=== PATIENT | female | born 1990 | race Two or more races ===

== ENCOUNTER 2018-12-21 02:50 | Inpatient (IN) | payer OTHER ==
[~2018-12-21] VITALS: Ht 157.5 cm; Wt 93.0 kg
[2018-12-21 04:40] VITALS: BP 134/83
--- NOTE | 2018-12-21 04:40 | NUR ---
RN MS ADMITTING OPENING NOTES RECEIVED PATIENT FROM [facility] VIA GURNEY TRANSPORTED BY 2 EMT, PATIENT WAS ABLE TO AMBULATE WITH STEADY GATE TO THE BED AND BATHROOM, RESPIRATIONS EVEN AND UNLABORED WITH EQUAL RISE AND FALL OF CHEST, STATES PAIN 3/10 PAIN IS TOLERABLE DOES NOT WANT PAIN MEDICATION AT THIS TIME, IV SITE TO RIGHT AC #20G INTACT AND PATENT, NO REDNESS, NO INFILTRATION PRESENT, MRSA SWAB DONE, STATES " I DONT HAVE ANY OPEN WOUNDS". BELONGINGS LIST DONE, MED RECON IN PLACE , ORIENTED TO STAFF AND CALL LIGHT AND KEPT WITHIN REACH, SAFETY PRECAUTIONS IN PLACE, LOW BED AND LOCKED, MADE AWARE OF ADMISSION AWAITING ORDERS WILL FOLLOW ORDERED. ALL NEEDS ATTENDED AT THIS TIME, REMAINS NPO. WILL CONTINUE TO MONITOR.
[2018-12-21] MEDS ORDERED: IV D5/0.45 NACL 1,000 ML IV PRN (05:09)
[2018-12-21] MEDS ORDERED: LEVO1TAB72 PO (05:26)
[2018-12-21] MEDS ORDERED: HYDROCODONE/APAP 5/325MG 1 EACH TABLET PO PRN (05:30)
[2018-12-21] MEDS ORDERED: ACETAMINOPHEN 325 MG TABLET PO PRN (05:30)
[2018-12-21] MEDS ORDERED: ONDANSETRON HCL/PF 4 MG/2 ML VIAL IVP PRN (05:30)
[2018-12-21] MEDS ORDERED: MAG HYDROX/AL HYDROX/SIMETH 30 ML UDC PO PRN (05:30)
[2018-12-21] MEDS ORDERED: MAGNESIUM HYDROXIDE 30 ML UDC PO PRN (05:30)
[2018-12-21] MEDS ORDERED: Z GUARD REMEDY 2 OZ OINT TP PRN (05:30)
[2018-12-21] MEDS ORDERED: ZOLPIDEM TARTRATE 5 MG TABLET PO PRN (05:30)
[2018-12-21] MEDS ORDERED: MORPHINE SULFATE INJ 4 MG/ML DISP.SYRIN IV PRN (05:30)
[2018-12-21] MEDS ORDERED: PIPERACILLIN /TAZOBACTAM 3.375 G VIAL IV ONE (05:54)
[2018-12-21] MEDS ORDERED: ZOSYN IVPB 3.375 G in IV D5W 50ml IV ONE (06:00)
--- NOTE | 2018-12-21 06:53 | NUR ---
RN MS CLOSING NOTES ABX ZOSYN AND IVF ORDERED RUNNING, IV SITE INTACT AND PATENT, NO CHANGES SINCE ADMISSION, DOES NOT WANT PAIN MEDICATION AT THIS TIME, DISCUSSED PLAN OF CARE, AWARE OF NPO STATUS, TOILETING OFFERED, ALL NEEDS ATTENDED REMAINS COMFORTABLE WILL ENDORSE TO NEXT SHIFT. SAFETY PRECAUTIONS REMAIN IN PLACE, CALL LIGHT KEPT WITHIN REACH, LOW BED AND LOCKED.
[2018-12-21] MEDS ORDERED: PANTOPRAZOLE 40 MG VIAL IV SCH (07:30)
[2018-12-21 07:45] LABS: BASOPHILS % (AUTO) 0.6 % (0.0-2.0); EOSINOPHILS % (AUTO) 1.7 % (0.0-6.0); HEMATOCRIT 36 % (33-45); HEMOGLOBIN 12.6 g/dL (11.5-14.8); LYMPHOCYTES # (AUTO) 2.8 /CMM (0.8-4.8); LYMPHOCYTES % (AUTO) 39.2 % (20.0-44.0); MEAN CORPUSCULAR HGB CONC 35 g/dl (31.0-36.0); MEAN CORPUSCULAR VOLUME 90 fL (82-100); MONOCYTES # (AUTO) 0.5 /CMM (0.1-1.30); MONOCYTES % (AUTO) 7.1 % (2.0-12.0); NEUTROPHILS # (AUTO) 3.7 /CMM (1.8-8.9); NEUTROPHILS % (AUTO) 51.4 % (43.0-81.0); PLATELET COUNT (AUTO) 241 /CMM (150-450); RED BLOOD CELL COUNT(AUTO) 4.01 MIL/uL (4.0-5.2); WHITE BLOOD COUNT (AUTO) 7.2 K/uL (4.3-11.0)
[2018-12-21 08:00] VITALS: BP 113/74
[2018-12-21 08:10] LABS: ALBUMIN 3.2 g/dL (3.4-5.0); BILIRUBIN,TOTAL 0.4 mg/dL (0.2-1.0); CALCIUM, SERUM 8.4 mg/dL (8.5-10.1); CREATININE 0.8 mg/dL (0.6-1.3); POTASSIUM 3.6 mmol/L (3.5-5.1); TOTAL PROTEIN, SERUM 6.7 g/dL (6.4-8.2)
[2018-12-21] MEDS ORDERED: FAMOTIDINE/PF INJ 20 MG/2 ML VIAL IV SCH (09:00)
[2018-12-21] MEDS ORDERED: PIPERACILLIN /TAZOBACTAM 3.375 G in IV D5W 100 ML IV SCH (12:00)
--- NOTE | 2018-12-21 14:37 | NUR ---
PATIENT AMBULATORY AND NO PAIN NOTED.
[2018-12-21 16:00] VITALS: BP 113/74
--- NOTE | 2018-12-21 16:55 | NUR ---
PATIENT DISCHARGED IN STABLE CONDITION WITH HOME INSTRUCTIONS GIVEN AND STATED UNDERSTANDING.HOME IN STABLE CONDITION AMBULATORY PER REQUEST AND ACCOMPANIED BY [facility].
== END 2018-12-21 16:55 | disposition home or self-care (01) ==
LOC: MEDSG1 04:31
PROVIDERS: ADMIT Nurse Practitioner Acute Care; ATTEND Nurse Practitioner Acute Care
DX: K80.20 Calculus of gallbladder without cholecystitis without obstruction (principal); E66.9 Obesity, unspecified; Z68.37 Body mass index [BMI] 37.0-37.9, adult
CPT/HCPCS: 36415; 71046; 80053-TC; 85025-TC; 87081-TC; G0378; J2543; J3490; J7060